=== PATIENT | male | born 1935 | race Caucasian/White ===

== ENCOUNTER → 2016-05-10 | Day surgery (SDC) | payer OTHER ==
[~2016-05-10] MED LIST: CARDURA8 MG PO; NORCO 325 MG-51 TA1 PO; SIMVASTATIN20 M1 PO; TRANDATE 200MG200 MG
== END ==
LOC: MSO 07:49
DX: Z12.11 Encounter for screening for malignant neoplasm of colon (principal); K62.1 Rectal polyp; Z85.038 Personal history of other malignant neoplasm of large intestine; Z86.010 Personal history of colon polyps; F17.210 Nicotine dependence, cigarettes, uncomplicated
CPT/HCPCS: 00810; J7120

== ENCOUNTER → 2021-08-31 | Day surgery (SDC) | payer MEDICARE | LOC: MSO 08:22 | DX: Z12.11 Encounter for screening for malignant neoplasm of colon (principal); F17.210 Nicotine dependence, cigarettes, uncomplicated | CPT/HCPCS: 00812; J2704; J7120 ==

== ENCOUNTER → 2022-04-07 | Outpatient (CLI) | payer MEDICARE | LOC: RAD 11:57 | DX: S82.64XA Nondisplaced fracture of lateral malleolus of right fibula, initial encounter for closed fracture (principal); X58.XXXA Exposure to other specified factors, initial encounter ==

== ENCOUNTER → 2022-11-25 | Outpatient (CLI) | payer MEDICARE | LOC: RAD 09:39 | DX: I71.43 Infrarenal abdominal aortic aneurysm, without rupture (principal); K40.20 Bilateral inguinal hernia, without obstruction or gangrene, not specified as recurrent; N40.0 Benign prostatic hyperplasia without lower urinary tract symptoms | CPT/HCPCS: Q9967 ==